=== PATIENT | female | born 1965 | race Caucasian/White ===

== ENCOUNTER 2023-12-02 08:03 | Emergency (ER) | payer BC, SELFPAY ==
[2023-12-02 08:13] VITALS: BP 133/73; PULSE 55; TEMP 37.2; O2SAT 99; BMI 36.9
--- NOTE | 2023-12-02 08:58 | ED_ITS ---
HPI - URI/Sore Throat General Chief Complaint: Upper Respiratory Infection Stated Complaint: COVID SYMPTOMS Time Seen by Provider: 12/02/23 08:58 Source: patient Limitations: no limitations History of Present Illness HPI Narrative: This patient is here essentially to be tested for COVID. There is 2 other family members here with her. Another family member tested positive at home a couple days ago and was admitted to a different facility because of increased heart rate. This patient's only complaint is a dry mouth and slight sore throat. She does not know if the sore throat was from wearing her CPAP mask or she is getting early symptoms of COVID. She has absolutely no other symptoms at all she says she feels fine, eating fine drinking fine no chest pain or shortness of breath. No fever aches chills myalgias arthralgias or other symptoms are all completely negative. She did not test for COVID at home. She did have COVID vaccination and she believes a booster. Related Data Allergies Allergy/AdvReac Type Severity Reaction Status Date / Time Sulfa (Sulfonamide Allergy Mild Hives Verified 12/02/23 08:17 Antibiotics) Exam Narrative Exam Narrative: This patient is totally asymptomatic with normal vital signs. Pulse oximetry is normal. Laboratory testing was done and is positive for COVID but negative for the other tested viral pathogens. Constitutional Vital Signs, click to edit/add: Last Vital Signs Temp 99.0 F 12/02/23 08:13 Pulse 55 L 12/02/23 08:13 Resp 18 12/02/23 08:13 BP 133/73 12/02/23 08:13 Pulse Ox 99 12/02/23 08:13 O2 Del Method Room Air 12/02/23 08:13 Course Vital Signs Vital signs: Vital Signs Temperature 99.0 F 12/02/23 08:13 Pulse Rate 55 L 12/02/23 08:13 Respiratory Rate 18 12/02/23 08:13 Blood Pressure 133/73 12/02/23 08:13 Pulse Oximetry 99 12/02/23 08:13 Oxygen Delivery Method Room Air 12/02/23 08:13 Temperature 99.0 F 12/02/23 08:13 Pulse Rate 55 L 12/02/23 08:13 Respiratory Rate 18 12/02/23 08:13 Blood Pressure 133/73 12/02/23 08:13 Pulse Oximetry 99 12/02/23 08:13 Oxygen Delivery Method Room Air 12/02/23 08:13 MDM - URI/Sore Throat MDM Narrative Medical decision making narrative: In the absence of severe comorbidities, symptomatology or abnormal vital signs no further treatment recommendations were made. Lab Data Labs: Lab Results 12/02/23 Range/Units 08:27 Influenza Type A Ag Negative Influenza Type B Ag Negative RSV Antigen Not detected (NOT DETECTE) SARS-CoV-2 Ag (CV2AG) Positive A (NEGATIVE) Discharge Plan Discharge Stand Alone Forms: Work/School Release, Portal Instructions Chief Complaint: Upper Respiratory Infection Clinical Impression: COVID-19 Patient Disposition: Home, Self-Care Time of Disposition Decision: 09:37 Print Language: Kazakh Instructions: Safely Care for Someone Who Has COVID-19 (ED) Referrals: Bel Martinez NP [Primary Care Provider] - 1 week
[2023-12-02 09:24] LABS: Influenza Virus A Antigen Negative; Influenza Virus B Antigen Negative; Internal Control Within Normal Limits; Respiratory Syncytial Virus Not Detected (NOT DETECTE); SARS-CoV-2 Ag POSITIVE (NEGATIVE)
== END 2023-12-02 10:06 | disposition home or self-care (01) ==
PROVIDERS: Emergency Provider Emergency Medicine Emergency Medical Services; PCP Nurse Practitioner Family
DX: U07.1 COVID-19 (principal)
CPT/HCPCS: 87420; 87804; 87811; 99283